=== PATIENT | female | born 1980 | race Caucasian/White ===

== ENCOUNTER 2023-11-28 12:52 | Outpatient (AMB) | payer OTHER, SELFPAY ==
[2023-11-28 13:03] VITALS: BP 126/80; PULSE 92
--- NOTE | 2023-11-28 13:03 | MHC.OFFVIS ---
Vital Signs 11/28/23 13:03 Weight 244 lb 11.41 oz BP 126/80 Blood Pressure Location Lt brachial Position Sitting Pulse 92 Pulse Source Monitor Intake Visit Reasons: [employer]/[facility]/ htn/abn ekg Allergies No Known Allergies Allergy (Verified 11/28/23 13:05) Medication List - Last Reconciled 11/28/23 by Ezequiel Longoria MD bupropion HCl XL 300 mg PO QAM escitalopram oxalate 20 mg PO DAILY lisinopril 10 mg PO DAILY metformin 500 mg PO DAILY HPI Comments Details: Thank you for referring Helen in cardiology consultation today for management of abnormal EKG. She has a pleasant 43-year-old female who has prior diagnose of PCOS as well as hypertension. She says she has had hypertension borderline probably for many years but not treated and had not seen a primary care physician for long time more recently noted to have significant elevated blood pressure on a physical exam after many years and at that time EKG was done and was read as abnormal EKG. EMT were called and she was brought to the health service urgent care. Reviewed EKG in the chart and it seems like the EKG presented to us with a referral shows normal sinus rhythm normal EKG. She says she has a lot of stress with her job. She however says a blood pressure is not better controlled. She denies any symptoms exertional chest pain or shortness of breath. Denies any orthopnea, PND, leg edema. Denies any prolonged palpitation irregular heartbeat. No lightheadedness, syncope. She says she can feel when her blood pressure is elevated as she feels flushed in her face. No other symptoms at all. COUNT INCLUDES THE [facility] Medical History (Updated 11/29/23 @ 14:13 by Ezequiel Longoria MD) HTN (hypertension) Family History Father Heart failure Mother Stroke Social History Alcohol intake: current Patient Tobacco Use Status: Former Tobacco user Review of Systems ENT Reports dizziness Card Denies chest pain, Denies chest pain at rest, Denies chest pain with activity, Denies rapid heart rate, Denies pedal edema, Denies edema, Denies leg edema, Denies lightheadedness, Denies palpitations, Reports dyspnea, Denies dyspnea on exertion and Denies orthopnea Resp Denies cough, Reports dyspnea and Denies dyspnea on exertion GI Denies hematochezia and Denies change in stool character Musc Denies abnormal gait, Reports limited range of motion, Reports muscle cramps, Denies muscle weakness, Denies numbness, Denies radiating pain into limb, Denies stiffness and Denies tingling Neuro Denies abnormal gait, Reports dizziness, Denies numbness and Denies tingling Endo Denies palpitations Physical Exam Vital Signs: Last Vital Signs Pulse 92 11/28/23 13:03 BP 126/80 11/28/23 13:03 Const General: cooperative, comfortable, no acute distress, alert, awake and Physically active Nutritional Appearance: obese morbidly obese Orientation/consciousness: patient oriented x3 Limitations: no limitations HEENT Head: Yes normocephalic and Yes atraumatic Neck Neck: Yes trachea midline, Yes supple and Yes no JVD Resp Effort & Inspection: normal respiratory effort Auscultation: clear to auscultation bilaterally Cardio Jugular venous distension: no JVD Palpation: normal PMI Rate: regular rate Rhythm: regular rhythm Heart sounds: S1 normal heart sound present, S2 normal heart sound present, no click, no gallops, no murmurs and no rubs GI Auscultation: normal bowel sounds Skin General skin exam: no rashes or lesions noted Neuro General: patient oriented x3 and no focal motor deficits Extrem General: Yes no clubbing, cyanosis or edema Psych Appearance: grossly normal Office Procedures EKG Details: EKG shows normal sinus rhythm with left axis deviation with poor R-wave progression most likely due to lead placement [id number], Complete Assessment & Plan Assessment & Plan (1) HTN (hypertension): Code(s): I10 - Essential (primary) hypertension Category: Medical Plan: Hypertension which was recently significant elevated and started on lisinopril therapy with good response. Today blood pressure is well optimized. Although she says she has intermittent episodes of elevated blood pressure. I advised her to monitor blood pressure more regularly and maintain a log. She does have symptoms suggestive of sleep apnea and I think she should undergo a sleep study albeit at home assess for obstructive sleep apnea which will also help with management. In the long run management of her weight will be a big target. This was discussed with her. She understands. Consider referral to bariatric service. She will think about it. For now continue lisinopril therapy. Advise low-salt diet. Advise adequate hydration. Will obtain echocardiogram to assess LV systolic and diastolic function to evaluate for hypertensive heart disease. Further treatment based on the findings. Will follow up in the clinic in 6 weeks time, sooner p.r.n.. Thank you for allowing me to partake in the care Orders: Orders CA echo transthoracic complete Today I10 - Essential (primary) hypertension RT home sleep study Today I10 - Essential (primary) hypertension, R40.0 - Somnolence
== END 2023-11-28 13:39 | disposition home or self-care (01) ==
PROVIDERS: Visit Provider Internal Medicine Cardiovascular Disease
DX: I10 Essential (primary) hypertension (principal)
CPT/HCPCS: 93010; 99204

== ENCOUNTER → 2023-11-28 12:52 | Outpatient (BNVA) | payer OTHER, SELFPAY | PROVIDERS: Visit Provider Internal Medicine Cardiovascular Disease | DX: I10 Essential (primary) hypertension (principal); Z79.899 Other long term (current) drug therapy | CPT/HCPCS: 93005 ==

== ENCOUNTER → 2023-12-23 12:57 | Outpatient (REF) | payer OTHER, SELFPAY ==
--- NOTE | 2023-12-23 13:03 | CA_ITS ---
Transthoracic Echocardiogram Patient (Last, First, Middle): Helen Johnson, Gender: Female Date of : 1980 Age: 43 Procedure Date: 12/23/2023 Procedure Type: Transthoracic Echocardiogram Location: OP Height: 162.56 cm Weight: 110.68 kg BSA: 2.13 m2 Heart Rate: bpm BP: 132 / 86 mmHg Resp Ther: JOHNATHAN Referring MD: Ezequiel Longoria MD Materials Planning Analyst: Ezequiel Longoria MD Symptoms: I10 - Essential (primary) hypertension Study Quality: Technically Difficult ECG Rhythm: Sinus Conclusions: - 1. Technically limited study 2. Normal LV ejection fraction 60 65% with normal filling pattern 3. Cardiac valvular Doppler within normal limits Findings Procedure Information Contrast agent, definity, is being given per protocol without apparent complications. Left Ventricle Normal left ventricular size, thickness, and systolic function. The visually estimated ejection fraction is between 60-65%. Spectral Doppler is indicative of a normal filling pattern. Right Ventricle The right ventricle was not well visualized. Normal right ventricular cavity size. Atria The left atrium is normal in size. Interatrial shunt cannot be excluded. The right atrium was not well visualized. Aortic Valve The aortic valve was not well visualized. There is no aortic valve stenosis. There is no aortic valve regurgitation. Mitral Valve The mitral valve was not well visualized. There is trace mitral valve regurgitation. There is no mitral valve stenosis. Pulmonic Valve The pulmonic valve was not well visualized. Tricuspid Valve The tricuspid valve was not well visualized. Tricuspid regurgitation envelope is inadequate for calculation of right ventricular systolic pressure. Normal right atrial pressure. Great Vessels The aorta was not well visualized. The pulmonary artery was not well visualized. There is no dilatation of the ascending aorta measuring 3.10 cm. Venous The inferior vena cava is normal in size. Pericardium/Pleural The pericardium was not well visualized. Prior Study Comparison No prior study available for comparison. Measurements 2D Linear Measurements IVSd: 0.98 0.6-0.9/0.6-1.0 cm LVIDd: 3.94 3.9-5.3/4.2-5.9 cm LVIDd Index: 1.85 2.4-3.2/2.2-3.1 cm/m2 LVIDs: 2.57 2.0-3.6 cm LVPWd: 1.08 0.7-1.1 cm LA Diam: 3.00 2.7-3.8/3.0-4.0 cm LAIDs Index: 1.41 1.5-2.3 cm/m2 LV Mass: 161.37 67-162/88-224 g LV Mass Index: 75.76 43-95/49-115 g/m2 LVOT Diam: 2.20 3.0+(-)1.3 cm 2D Systolic Function EF 4C: 66.60 >55% EF 2C: 61.70 >55% EF BiP: 64.80 >55% Mitral Valve MV Pk E: 0.87 MV PK A: 0.64 MV Decel Time: 254.00 E/A: 1.40 E'Lateral: 10.90 E'Medial: 7.83 E/E' Med: 11.20 E/E' Lat: 8.00 PHT: 74.00 MVA PHT: 2.97 Decel Heard: 3.44 Aortic Valve AoV Pk Nahun: 1.40 AoV Mn Nahun: 0.94 AoV VTI: 0.27 AoV Pk Grad: 8.00 Aov Mn Grad: 4.00 DELORES Cont.VTI: 2.80 LVOT LVOT Pk Nahun: 1.13 LVOT Mn Nahun: 0.74 LVOT VTI: 0.20 LVOT Pk Grad: 5.00 LVOT Mn Grad: 3.00 LVOT Diam: 2.20 LVOT Area: 3.80 Diastolic Function MV Pk E: 0.87 MV Pk A: 0.64 E/A: 1.40 E'Medial: 7.83 E/E' Med: 11.20 E' Laterial: 10.90 E/E' Lat: 8.00 Right Ventricle TAPSE (mm): 19.40 TVS' Nahun: 11.30 Great Vessels Aorta Sinus of Valsalva: 3.23 2.0-3.5 cm Ao Asc: 3.10 2.1-3.4 cm Updated in Other Vendor System with Status of Final Ezequiel Longoria MD electronically signed on 12/23/2023 3:38:30 PM with status of Final
== END ==
LOC: HO.CARD 12:57
PROVIDERS: Visit Provider Internal Medicine Cardiovascular Disease
DX: I10 Essential (primary) hypertension (principal)
CPT/HCPCS: 93306; Q9957

== ENCOUNTER → 2023-12-23 13:03 | Outpatient (BNV) | payer OTHER, SELFPAY | PROVIDERS: Visit Provider Internal Medicine Cardiovascular Disease | DX: I10 Essential (primary) hypertension (principal); I34.0 Nonrheumatic mitral (valve) insufficiency | CPT/HCPCS: 93306 ==

== ENCOUNTER → 2024-01-13 12:53 | Outpatient (REF) | payer OTHER, SELFPAY | LOC: HO.SL 12:53 | PROVIDERS: Visit Provider Internal Medicine Cardiovascular Disease | DX: I10 Essential (primary) hypertension (principal); R40.0 Somnolence | CPT/HCPCS: 95806 ==

== ENCOUNTER → 2024-01-13 13:07 | Outpatient (BNV) | payer OTHER, SELFPAY | PROVIDERS: Visit Provider Internal Medicine | DX: R40.0 Somnolence (principal); R06.83 Snoring | CPT/HCPCS: 95806 ==